=== PATIENT | male | born 1950 | race Caucasian/White ===

== ENCOUNTER → 2021-02-15 | Outpatient (CLI) | payer MEDICARE, OTHER ==
--- NOTE | 2021-02-15 12:33 | Diagnostic Imaging Report ---
INDICATION: Right shoulder pain 3 views of the right shoulder show no fracture, dislocation or other acute abnormality. There is mild degenerative change at the glenohumeral joint. There is moderate narrowing and spurring at the AC joint. There is loss of the space between the humeral head and acromion consistent with retracted rotator cuff tears. IMPRESSION: There are degenerative changes present with no acute abnormality seen. Dictated by: Dictated on workstation # [id number]
== END ==
LOC: RAD FS 10:04
PROVIDERS: ATTEND Nurse Practitioner
DX: M19.011 Primary osteoarthritis, right shoulder (principal)
CPT/HCPCS: 73030